=== PATIENT | male | born 1995 | race African-American/Black ===

== ENCOUNTER 2020-11-04 02:54 | Emergency (ER) | payer MEDICAID ==
[~2020-11-04] VITALS: Ht 175.3 cm; Wt 108.9 kg
[2020-11-04 03:34] VITALS: BP 168/96
== END 2020-11-04 05:32 | disposition home or self-care (01) ==
LOC: ER 02:54
DX: R00.2 Palpitations (principal); R41.9 Unspecified symptoms and signs involving cognitive functions and awareness; F17.210 Nicotine dependence, cigarettes, uncomplicated; F12.10 Cannabis abuse, uncomplicated
CPT/HCPCS: 93005

== ENCOUNTER 2020-11-17 01:34 | Emergency (ER) | payer MEDICAID ==
[~2020-11-17] VITALS: Ht 175.3 cm; Wt 108.9 kg
[2020-11-17 01:44] VITALS: BP 159/93
== END 2020-11-17 01:51 | disposition left against medical advice (07) ==
LOC: ER 01:36
DX: R07.9 Chest pain, unspecified (principal); Z53.21 Procedure and treatment not carried out due to patient leaving prior to being seen by health care provider
CPT/HCPCS: 93005

== ENCOUNTER 2021-03-08 22:18 | Emergency (ER) | payer MEDICAID ==
[~2021-03-08] VITALS: Ht 175.3 cm; Wt 109.8 kg
[2021-03-08 22:50] VITALS: BP 141/90
== END 2021-03-09 01:17 | disposition home or self-care (01) ==
LOC: ER 22:19
DX: F41.9 Anxiety disorder, unspecified (principal); F17.200 Nicotine dependence, unspecified, uncomplicated
CPT/HCPCS: 70450

== ENCOUNTER 2021-07-27 19:56 | Emergency (ER) | payer MEDICAID ==
[~2021-07-27] VITALS: Ht 175.3 cm; Wt 113.4 kg
[2021-07-27 19:58] VITALS: BP 134/83
== END 2021-07-27 23:52 | disposition left against medical advice (07) ==
LOC: ER 19:56
DX: R51.9 Headache, unspecified (principal); Z53.21 Procedure and treatment not carried out due to patient leaving prior to being seen by health care provider

== ENCOUNTER 2022-02-26 03:17 | Emergency (ER) | payer MEDICAID ==
[~2022-02-26] VITALS: Ht 175.3 cm; Wt 113.6 kg
[2022-02-26 03:17] VITALS: BP 149/91
[2022-02-26] MEDS ORDERED: ONDANSETRON ODT 4 MG TAB PO ONE (04:15)
[2022-02-26] MEDS ORDERED: DICYCLOMINE HCL 10 MG CAP PO ONE (04:15)
[2022-02-26] MEDS ORDERED: LIDOCAINE VISCOUS 2% 15ML UD PO ONE (04:15)
[2022-02-26] MEDS ORDERED: ALUM & MAG HYDROX-SIMETH LIQ(MAALOX) 30 ML PO ONE (04:15)
[2022-02-26] MEDS ORDERED: FAMOTIDINE 20 MG TAB PO ONE (04:15)
[2022-02-26] MEDS ORDERED: OME20T PO (04:32)
== END 2022-02-26 05:08 | disposition home or self-care (01) ==
LOC: ER 03:17
DX: K21.9 Gastro-esophageal reflux disease without esophagitis (principal)

== ENCOUNTER 2024-03-10 00:54 | Emergency (ER) | payer MEDICAID ==
[~2024-03-10] VITALS: Ht 175.3 cm; Wt 109.2 kg
[~2024-03-10 00:54] MED LIST: OME20T PO
[2024-03-10 00:59] VITALS: BP 123/52; PULSE 111; RESP 18; O2SAT 96
[2024-03-10] MEDS: GLUCAGON EMERG KIT 1mg/1ml IM ONE (02:21)
[2024-03-10] MEDS: PANTOPRAZOLE 40 MG TAB PO ONE (02:21)
[2024-03-10] MEDS ORDERED: PANT40TA2 PO (02:44)
== END 2024-03-10 02:49 | disposition home or self-care (01) ==
LOC: ER 00:54
DX: J02.9 Acute pharyngitis, unspecified (principal); F14.10 Cocaine abuse, uncomplicated; K21.9 Gastro-esophageal reflux disease without esophagitis
CPT/HCPCS: 96372; 99283; J1610